=== PATIENT | female | born 1965 | race Asian ===

== ENCOUNTER 2017-07-30 10:58 | Emergency (ER) | payer BC ==
[2017-07-30 11:29] VITALS: BP 144/91
== END 2017-07-30 14:09 | disposition home or self-care (01) ==
LOC: ED 10:58
DX: S16.1XXA Strain of muscle, fascia and tendon at neck level, initial encounter (principal); S39.92XA Unspecified injury of lower back, initial encounter; I10 Essential (primary) hypertension; W52.XXXA Crushed, pushed or stepped on by crowd or human stampede, initial encounter; Y93.02 Activity, running; Y92.89 Other specified places as the place of occurrence of the external cause; Y99.8 Other external cause status